=== PATIENT | male | born 1980 | race American Indian/Alaskan Native ===

== ENCOUNTER 2020-11-08 14:12 | Emergency (ER) | payer SELFPAY ==
--- NOTE | 2020-11-08 16:44 | Emergency Department Report ---
Chief Complaint: Urogenital-Male Stated Complaint: STD EXPOSURE - HPI History of Present Illness: 40-year-old -[place] male presents to the emergency room reporting he has had a week penile discharge. Admits to unprotected intercourse. Denies any fever chills or nausea no vomiting no abdominal pain no dysuria. Denies any testicular pain testicular swelling. Patient reports he thinks he has an STD. - Exam Vital Signs: Vital Signs 11/08/20 14:46 Temperature 98.6 F Pulse Rate 74 Respiratory 20 Rate Blood Pressure 157/87 O2 Sat by Pulse 98 Oximetry Physical Exam: General: Awake, appropriately interactive, no acute distress. Neck: Supple. Full range of motion intact. Cardiovascular: Normal peripheral perfusion. Pulmonary: No respiratory distress. Patient is speaking normally without use of accessory muscles. Skin: No apparent rashes or lesions. Neurological: No facial asymmetry. Speech is clear. Follows commands. Patient is alert and oriented. Musculoskeletal: Full range of motion, no crepitus. No tenderness to palpate nonerythematous no edema test appreciated. Able to bear weight and ambulate without difficulty. Distal neurovascular and motor/sensory function is intact. Psych: Cooperative. Appropriate mood and affect. MSE screening note: Focused history and physical exam performed. Due to findings the following was ordered: 40-year-old -[place] male presents to the emergency room reporting he has had a week penile discharge. Admits to unprotected intercourse. Denies any fever chills or nausea no vomiting no abdominal pain no dysuria. Denies any testicular pain testicular swelling. Patient reports he thinks he has an STD. Recommend to follow-up in urgent care health department or clinic. ED Disposition for MSE Disposition: MED SCREENING EXAM-LEFT Is pt being admited?: No Does the pt Need Aspirin: No Condition: Stable Additional Instructions: recommend to follow up at the health department or urgent care. Referrals: PRIMARY CARE, [Primary Care Provider] - 3-5 Days [facility] [Outside] - 3-5 Days [facility] [Outside] - 3-5 Days
== END 2020-11-08 17:00 | disposition left against medical advice (07) ==
LOC: ED 14:12